=== PATIENT | female | born 1965 | race Caucasian/White ===

== ENCOUNTER 2021-10-05 09:37 | Emergency (ER) | payer OTHER ==
[2021-10-05] MEDS ORDERED: NORCO 5-325 TA1 EACH PO (13:22)
[2021-10-05] MEDS ORDERED: ONDANSETRON ODT4 MG PO (13:22)
== END 2021-10-05 15:05 | disposition home or self-care (01) ==
LOC: FER 09:37
DX: S93.04XA Dislocation of right ankle joint, initial encounter (principal); W19.XXXA Unspecified fall, initial encounter; Y92.410 Unspecified street and highway as the place of occurrence of the external cause
CPT/HCPCS: 73590; 73610; 73630; 96374; 96375; 96376; J1170; J2405; J2550